=== PATIENT | female | born 1995 | race Two or more races ===

== ENCOUNTER 2021-08-07 18:17 | Emergency (ER) | payer OTHER ==
[~2021-08-07] VITALS: Ht 165.1 cm; Wt 57.6 kg
[2021-08-07] MEDS ORDERED: CARAFATE1 GM PO (21:28)
== END 2021-08-07 21:32 | disposition home or self-care (01) ==
LOC: ER 18:17
DX: K29.60 Other gastritis without bleeding (principal); Z20.822 Contact with and (suspected) exposure to COVID-19

== ENCOUNTER 2023-06-05 13:08 | Outpatient (CLI) | payer OTHER ==
[~2023-06-05 13:08] MED LIST: CARAFATE1 GM PO
== END 2023-06-05 14:08 | disposition home or self-care (01) ==
LOC: SONOGRAMA 13:08
PROVIDERS: ATTEND Obstetrics & Gynecology
DX: N63.10 Unspecified lump in the right breast, unspecified quadrant (principal); N63.20 Unspecified lump in the left breast, unspecified quadrant

== ENCOUNTER 2024-04-28 14:13 | Outpatient (CLI) | payer OTHER | END 2024-04-28 14:25 | disposition home or self-care (01) | LOC: SONOGRAMA 14:13 | PROVIDERS: ATTEND Obstetrics & Gynecology Maternal & Fetal Medicine | DX: N63.10 Unspecified lump in the right breast, unspecified quadrant (principal) ==

== ENCOUNTER 2024-09-09 18:38 | Inpatient (IN) | payer OTHER ==
[~2024-09-09] VITALS: Ht 165.1 cm; Wt 2.7 kg
[2024-09-09 18:15] VITALS: BP 142/100
[2024-09-09] MEDS ORDERED: MORPHINE SULFATE 4 MG/ML CARTRIDGE IV ONE (18:45)
[2024-09-09 20:22] LABS: HEMATOCRIT 40.4 % (36.0-45.00); HEMOGLOBIN 13.6 g/dL (12.0-15.00); MEAN CELL VOLUME 91.7 fL (80.00-100.00); MEAN CORPUSCULAR HEMOGLOBIN 30.8 pg (27.00-32.0); MEAN CORPUSCULAR HGB CONC 33.6 g/dl (32.0-36.0); PLATELET COUNT 212 K/uL (150-450); RED BLOOD COUNT 4.41 M/uL (4.00-6.00); RED CELL DISTRIBUTION WIDTH 14.1 % (11.5-14.5)
[2024-09-09 20:37] LABS: INR < 0.93; PARTIAL THROMBOPLASTIN TIME 30.6 SECONDS (22.0-34.0)
[2024-09-09 20:44] LABS: ALBUMIN 3.2 gm/dL (3.4-5.0); BILIRUBIN TOTAL 0.34 mg/dL (0.3-1.2); CALCIUM 9.3 mg/dL (8.5-10.1); CREATININE SERUM 1.03 mg/dL (0.55-1.02); GFR 62.92; GLOBULINA 3.7 G/DL (2.4-3.5); POTASSIUM 4.13 mEq/L (3.5-5.1); TOTAL PROTEIN 6.9 gm/dL (6.4-8.2)
[2024-09-09 23:23] VITALS: BP 151/79
[2024-09-09] MEDS ORDERED: RINGERS SOLUTION,LACTATED 1,000 ML IV SCH (23:30)
[2024-09-10] MEDS ORDERED: OXYTOCIN 10 UNITS/ML VIAL IV ONE (02:45)
[2024-09-10] MEDS ORDERED: ERYTHROMYCIN BASE OPHT 1GM EACH TUBE OP ONE (02:45)
[2024-09-10] MEDS ORDERED: MORPHINE SULFATE 4 MG/ML CARTRIDGE IV PRN (03:30)
[2024-09-10] MEDS ORDERED: OXYTOCIN 1,000 ML IV SCH (03:30)
[2024-09-10] MEDS ORDERED: MORPHINE SULFATE 4 MG/ML VIAL IV ONE ×2 (04:30→05:00)
[2024-09-10] MEDS ORDERED: PRENATABS RX T1 EACH PO (07:00)
[2024-09-10 09:58] VITALS: BP 140/80
[2024-09-10 16:22] VITALS: BP 138/86
[2024-09-11 01:36] VITALS: BP 121/80
[2024-09-11] MEDS ORDERED: FF) RHO(D) IMMUNE GLOBULIN (POM) IM ONE (08:15)
[2024-09-11] MEDS ORDERED: IBUprofen 400 MG TABLET PO SCH (09:00)
[2024-09-11 13:20] VITALS: BP 128/82
[2024-09-11 16:28] VITALS: BP 129/88
[2024-09-11] MEDS ORDERED: IBUprofen 600 MG TABLET PO SCH (18:00)
[2024-09-11] MEDS ORDERED: GABAPENTIN 300 MG CAPSULE PO SCH (19:11)
[2024-09-11] MEDS ORDERED: ACETAMINOPHEN 500 MG GEL..CAP PO SCH (19:11)
[2024-09-11] MEDS ORDERED: DOCUSATE CALCIUM 240 MG CAPSULE PO SCH (19:12)
[2024-09-11] MEDS ORDERED: DOCUSATE SODIUM 100MG CAP PO SCH (19:39)
[2024-09-11] MEDS ORDERED: KETOROLAC TROMETHAMINE 60 MG VIAL IM PRN (21:45)
[2024-09-11] MEDS ORDERED: KETOROLAC TROMETHAMINE 60 MG VIAL IM ONE (22:00)
[2024-09-12] VITALS: BP 107/67
[2024-09-12 08:54] VITALS: BP 108/68
[2024-09-13 01:00] VITALS: BP 130/70
[2024-09-13 08:00] VITALS: BP 93/70
== END 2024-09-13 13:53 | disposition home or self-care (01) | DRG 788 ==
LOC: LDR 18:38 → OB/GYN 18:38
PROVIDERS: ADMIT Obstetrics & Gynecology; ATTEND Obstetrics & Gynecology
PROC: 4A1HXCZ Monitoring of Products of Conception, Cardiac Rate, External Approach (ICD-10-PCS; 2024-09-09)
PROC: 10D00Z1 Extraction of Products of Conception, Low, Open Approach (ICD-10-PCS; principal; 2024-09-10 15:00)
DX: O82 Encounter for cesarean delivery without indication (principal); Z3A.37 37 weeks gestation of pregnancy; Z37.0 Single live birth; Z20.822 Contact with and (suspected) exposure to COVID-19

== ENCOUNTER 2025-03-09 11:46 | Outpatient (CLI) | payer OTHER ==
[~2025-03-09 11:46] MED LIST changes: +PRENATABS RX T1 EACH PO
== END 2025-03-09 11:47 | disposition home or self-care (01) ==
LOC: SONOGRAMA 11:46
PROVIDERS: ATTEND Obstetrics & Gynecology
DX: N63.10 Unspecified lump in the right breast, unspecified quadrant (principal); N63.20 Unspecified lump in the left breast, unspecified quadrant